=== PATIENT | male | born 1985 | race Caucasian/White ===

== ENCOUNTER 2020-05-09 14:04 | Emergency (ER) | payer SELFPAY ==
--- NOTE | 2020-05-09 14:22 | NUR ---
PT DECIDED THAT HE DID NOT WANT TO PAY FOR THE COVIS TEST AND LWBS
== END 2020-05-09 14:22 | disposition left against medical advice (07) ==
LOC: MED 14:04
DX: Z53.21 Procedure and treatment not carried out due to patient leaving prior to being seen by health care provider (principal)

== ENCOUNTER 2020-11-03 06:30 | Emergency (ER) | payer BC ==
[~2020-11-03] VITALS: Ht 180.3 cm; Wt 74.8 kg
[2020-11-03 06:36] VITALS: BP 120/71
--- NOTE | 2020-11-03 06:38 | NUR ---
TO [facility]
--- NOTE | 2020-11-03 06:45 | NUR ---
SEEN AND EXAMINED BY CARSON WITH ORDRES AND CARRIED OUT
--- NOTE | 2020-11-03 06:48 | NUR ---
SWAB DONE AND SENT TO LAB
[2020-11-03 06:59] VITALS: BP 120/71
--- NOTE | 2020-11-03 07:00 | NUR ---
Patient discharged with v/s stable. Written and verbal after care instructions given and explained. Patient verbalized understanding. Ambulatory with steady gait. All questions addressed prior to discharge. Advised to follow up with PMD.
--- NOTE | 2020-11-03 07:43 | NUR ---
CALLED PATIENT FOR RESULTS WITH NO ANSWER.
== END 2020-11-03 07:00 | disposition home or self-care (01) ==
LOC: MED 06:30
DX: R05 Cough (principal); R09.89 Other specified symptoms and signs involving the circulatory and respiratory systems; Z20.828 Contact with and (suspected) exposure to other viral communicable diseases
CPT/HCPCS: 99283